=== PATIENT | female | born 1975 | race Caucasian/White ===

== ENCOUNTER 2021-07-26 18:16 | Emergency (ER) | payer SELFPAY ==
[~2021-07-26] VITALS: Ht 149.9 cm; Wt 62.6 kg
[2021-07-26 18:38] VITALS: BP 124/74
--- NOTE | 2021-07-26 18:53 | NUR ---
EMT AT BEDSIDE FOR EKG
--- NOTE | 2021-07-26 18:58 | NUR ---
PER ERMD 12 LEAD WAS DONE ON PT AN CAME BACK NSR AT 57 HR.
--- NOTE | 2021-07-26 19:00 | NUR ---
46 Y/O FEMALE C/O CHEST PAIN WITH SOB X1 WEEK. PT REPORTS PAIN 5/10 THAT SHE DESCRIBES PRESSURE LIKE RADIATING TO RAMON SHOULDERS. PT ALSO REPORTS HAVING A DRY THROAT AND SHE FEELS LIKE ITS HARD TO BREATHE WHEN SHE LAYS DOWN AND SHE STATES SHE HASNT BEEN ABLE TO SLEEP. SPO2 100% RA. PT REPORTS FEELING ANXIOUS. PT DENIES COUGH. PT DENIES TAKING ANYTHING FOR PAIN. PT A/O X4 WITH EVEN AND UNLABORED RESPIRATIONS. PMH: DENIES NKDA
--- NOTE | 2021-07-26 19:04 | NUR ---
DR REYES AT BEDSIDE EVALUATING PT
[2021-07-26] MEDS ORDERED: ATA25 PO (19:08)
[2021-07-26] MEDS ORDERED: IBUP-2213 PO (19:08)
--- NOTE | 2021-07-26 19:15 | NUR ---
REPORT GIVEN TO JACKIE ESCOBAR, TRANSFER OF CARE AT THIS TIME
[2021-07-26] MEDS: KETOROLAC 60 MG/2 ML VIAL IM ONE (19:36)
--- NOTE | 2021-07-26 19:39 | NUR ---
ADMINISTERED ERMD MED ORDER
[2021-07-26 19:47] VITALS: BP 124/74
--- NOTE | 2021-07-26 19:47 | NUR ---
Patient discharged with v/s stable. Written and verbal after care instructions given and explained. Patient verbalized understanding. Ambulatory with steady gait. All questions addressed prior to discharge. Advised to follow up with PMD.
== END 2021-07-26 19:47 | disposition home or self-care (01) ==
LOC: MED 18:16
DX: F41.9 Anxiety disorder, unspecified (principal); R07.89 Other chest pain
CPT/HCPCS: 93005; 96372; 99283; J1885

== ENCOUNTER 2021-10-25 13:09 | Emergency (ER) | payer OTHER ==
[~2021-10-25] VITALS: Ht 157.5 cm; Wt 62.6 kg
[~2021-10-25 13:09] MED LIST: ATA25 PO; IBUP-2213 PO
[2021-10-25 13:14] VITALS: BP 105/58
[2021-10-25 14:16] LABS: BASOPHILS # (AUTO) 0.1 K/uL (0.00-0.22); BASOPHILS % (AUTO) 1.3 % (0.0-2.0); EOSINOPHILS # (AUTO) 0.3 K/uL (0-0.4); EOSINOPHILS % (AUTO) 5.3 % (0.0-4.0); HEMATOCRIT 39.1 % (36-48); HEMOGLOBIN 13.2 g/dL (12.0-16.0); LYMPHOCYTES # (AUTO) 2.4 K/uL (2.5-16.5); MEAN CORPUSCULAR HEMOGLOBIN 30 pg (27-31); MEAN CORPUSCULAR HGB CONC 34 g/dL (33-37); MEAN CORPUSCULAR VOLUME 89.9 fL (80-94); MONOCYTES # (AUTO) 0.5 K/uL (0.8-1.0); MONOCYTES % (AUTO) 8.6 % (1.7-9.3); NEUTROPHILS % (AUTO) 46.8 % (42.2-75.2); PLATELET COUNT (AUTO) 370 K/uL (140-450); RED BLOOD CELL COUNT(AUTO) 4.35 MIL/uL (4.20-5.40); RED CELL DISTRIBUTION WIDTH 12.8 % (11.6-13.7); WHITE BLOOD COUNT (AUTO) 6.3 K/uL (4.8-10.8)
[2021-10-25 14:32] LABS: ALBUMIN 3.5 g/dL (3.4-5.0); ANION GAP 9.6 (8-16); CARBON DIOXIDE 29.4 mmol/L (21-32); CREATININE 0.8 mg/dL (0.6-1.3); TOTAL BILIRUBIN 0.2 mg/dL (0.0-1.0)
[2021-10-25] MEDS ORDERED: diazePAM 5 MG TAB PO ONE (15:30)
--- NOTE | 2021-10-25 15:30 | NUR ---
46 Y/O FEMALE C/O CHEST PAIN 04/03 DESCRIBES PRESSURE RADIATES TO LEFT ARM X1.5MONTHS. DENIES FEVER/CHILLS. DENIES N/V. DENIES PMH NKA
[2021-10-25] MEDS ORDERED: DIAZ5TAB8 PO (16:44)
[2021-10-25 17:14] VITALS: BP 121/64
--- NOTE | 2021-10-25 17:15 | NUR ---
Patient discharged with v/s stable. Written and verbal after care instructions given FOR CHEST WALL PAIN and explained. Patient alert, oriented and verbalized understanding of instructions. Ambulatory with steady gait. All questions addressed prior to discharge. ID band removed. Patient advised to follow up with PMD. Rx of VALIUM given. Patient educated on indication of medication including possible reaction and side effects. Opportunity to ask questions provided and answered.
== END 2021-10-25 17:15 | disposition home or self-care (01) ==
LOC: MED 13:09
DX: R07.89 Other chest pain (principal); Z79.899 Other long term (current) drug therapy
CPT/HCPCS: 36415; 71045; 80053; 83880; 84484; 85025; 93005; 99285

== ENCOUNTER 2021-12-12 11:48 | Emergency (ER) | payer OTHER ==
[~2021-12-12] VITALS: Ht 142.2 cm; Wt 62.6 kg
[~2021-12-12 11:48] MED LIST changes: +DIAZ5TAB8 PO
[2021-12-12 11:55] VITALS: BP 122/62
--- NOTE | 2021-12-12 12:04 | NUR ---
Pt ambulated steadily to lobby to wait for ERMD.
[2021-12-12] MEDS ORDERED: AMOXIL/CLAVULANATE 875/125 MG 1 TAB PO ONE (13:05)
[2021-12-12] MEDS ORDERED: ONDANSETRON 4 MG/2 ML VIAL IVP ONE (13:05)
[2021-12-12 13:50] LABS: BASOPHILS % (AUTO) 0.4 % (0.0-2.0); EOSINOPHILS # (AUTO) 0.4 K/uL (0-0.4); EOSINOPHILS % (AUTO) 5.4 % (0.0-4.0); HEMATOCRIT 38.8 % (36-48); HEMOGLOBIN 12.8 g/dL (12.0-16.0); MEAN CORPUSCULAR HEMOGLOBIN 30 pg (27-31); MEAN CORPUSCULAR HGB CONC 33 g/dL (33-37); MEAN CORPUSCULAR VOLUME 89.9 fL (80-94); MONOCYTES # (AUTO) 0.6 K/uL (0.8-1.0); MONOCYTES % (AUTO) 9.1 % (1.7-9.3); NEUTROPHILS # (AUTO) 3.7 K/uL (1.8-7.7); NEUTROPHILS % (AUTO) 55.1 % (42.2-75.2); PLATELET COUNT (AUTO) 313 K/uL (140-450); RED BLOOD CELL COUNT(AUTO) 4.32 MIL/uL (4.20-5.40); RED CELL DISTRIBUTION WIDTH 13.1 % (11.6-13.7); WHITE BLOOD COUNT (AUTO) 6.7 K/uL (4.8-10.8)
--- NOTE | 2021-12-12 13:55 | NUR ---
46 y/o female, pt states she may have had food poisoning after eating hamburger 5 days ago, pt states she was with her cousin and her cousin is also having the same s/s eating same thing. c/o abd pain with n/v/d, last diarrhea episode was this morning. skin is pink/warm/dry. a&o x4 with even and steady gait. lungs clear bl, heart rate even and regular. pt denies dysuria, hematuria, urinary frequency or retention. pt denies any fever, cp, sob, or cough at this time. pt states pain is 10/10 at this time. vss. patient positioned for comfort. hob elevated. bed down. ermd made aware of pt. pmh: denies nka med: denies
[2021-12-12 14:10] LABS: ALBUMIN 3.3 g/dL (3.4-5.0); ANION GAP 10.9 (8-16); CARBON DIOXIDE 26.8 mmol/L (21-32); CREATININE 0.6 mg/dL (0.6-1.3); POTASSIUM 3.7 mmol/L (3.5-5.1); TOTAL BILIRUBIN 0.2 mg/dL (0.0-1.0)
[2021-12-12] MEDS ORDERED: NACL 0.9% 1,000 ML IV ONE (15:00)
--- NOTE | 2021-12-12 15:01 | NUR ---
Patient appears to be resting comfortably in bed. Vital Signs within normal limits. Respirations even and unlabored.
[2021-12-12] MEDS ORDERED: ONDA-188 SL (15:26)
[2021-12-12] MEDS ORDERED: AMOX-999 PO (15:26)
[2021-12-12 16:00] VITALS: BP 122/62
--- NOTE | 2021-12-12 16:01 | NUR ---
Patient discharged with v/s stable. Written and verbal after care instructions given and explained. Patient alert, oriented and verbalized understanding of instructions. Ambulatory with steady gait. All questions addressed prior to discharge. ID band removed. Patient advised to follow up with PMD. Rx of amoxicillin, zofran (sent) given. Patient educated on indication of medication including possible reaction and side effects. Opportunity to ask questions provided and answered. work note given
== END 2021-12-12 16:00 | disposition home or self-care (01) ==
LOC: MED 11:48
DX: R19.7 Diarrhea, unspecified (principal); R11.2 Nausea with vomiting, unspecified; R10.9 Unspecified abdominal pain; Z79.899 Other long term (current) drug therapy
CPT/HCPCS: 36415; 80053; 85025; 96361; 96374; 99283; J2405; J7030

== ENCOUNTER 2022-07-27 12:22 | Emergency (ER) | payer OTHER ==
[~2022-07-27] VITALS: Ht 157.5 cm; Wt 65.8 kg
[~2022-07-27 12:22] MED LIST changes: +AMOX-999 PO; +ONDA-188 SL
[2022-07-27 12:35] VITALS: BP 109/68
--- NOTE | 2022-07-27 12:35 | NUR ---
PT AMB TO [facility]
--- NOTE | 2022-07-27 14:38 | NUR ---
Patient discharged with v/s stable. Written and verbal after care instructions given. Patient verbalized understanding. Ambulatory with steady gait. All questions addressed prior to discharge. Advised to follow up with PMD.
--- NOTE | 2022-07-27 14:39 | NUR ---
Chart checked and completed. The patient's care was reviewed and supervised by Joellen Young RN.
== END 2022-07-27 14:38 | disposition home or self-care (01) ==
LOC: MED 12:22
DX: B34.9 Viral infection, unspecified (principal)
CPT/HCPCS: 99281